=== PATIENT | male | born 1995 | race Caucasian/White ===

== ENCOUNTER 2018-06-20 06:34 | Emergency (ER) | payer SELFPAY ==
[~2018-06-20] VITALS: Ht 167.6 cm; Wt 81.6 kg
[2018-06-20 06:37] VITALS: Ht 167.6 cm; Wt 81.6 kg
[2018-06-20] MEDS ORDERED: AXIRON30 MG/1.5 (06:38)
[2018-06-20] MEDS ORDERED: TYLENOL W/CODEI1 TAB PO (08:10)
[2018-06-20 08:23] VITALS: BP 131/82
== END 2018-06-20 08:24 | disposition home or self-care (01) ==
LOC: D.ER 06:34
DX: S19.9XXA Unspecified injury of neck, initial encounter (principal); V49.9XXA Car occupant (driver) (passenger) injured in unspecified traffic accident, initial encounter; Y93.89 Activity, other specified; Y92.410 Unspecified street and highway as the place of occurrence of the external cause; S49.91XA Unspecified injury of right shoulder and upper arm, initial encounter